=== PATIENT | male | born 1945 | race Two or more races ===

== ENCOUNTER 2018-05-05 18:47 | Inpatient (IN) | payer MEDICARE, OTHER ==
[~2018-05-05] VITALS: Ht 172.7 cm; Wt 120.7 kg
[~2018-05-05 18:47] MED LIST: BENA5TAB15 PO; GLYB1TAB3 PO; LEVA15HF4 IH; OMEP20CA4 PO; TAMS-12 PO
--- NOTE | 2018-05-05 18:50 | NUR ---
PT BIB SELF C/O SOB, COUGH AND CONGESTION WORST AT NIGHT X 4 DAY, PT IS AOX4, NOT IN CP DISTRESS, V/S STABLE, KEPT RESTED AND COMFORTABLE, AWAITING ER MD FOR EVAL.
--- NOTE | 2018-05-05 19:15 | NUR ---
ENDORSED TO JUSTIN SALINAS FOR GRADY.
--- NOTE | 2018-05-05 19:17 | NUR ---
REC'D ENDORSEMENT FROM JUSTIN SMILEY FOR GRADY
[2018-05-05] MEDS ORDERED: ALBUTEROL FS 2.5 MG/3 ML VIAL.NEB ONE ×2 (19:22→19:35)
[2018-05-05] MEDS ORDERED: ALBUTEROL FS 2.5 MG/3 ML VIAL.NEB CONTNEB ONE (19:30)
[2018-05-05] MEDS ORDERED: methylPREDNISolone SOD SUCC 125 MG/2ML VIAL IV ONE (19:30)
--- NOTE | 2018-05-05 19:30 | NUR ---
COLLECTED INFLUENZA SWAB FROM RIGHT NARE AND SENT TO LAB
[2018-05-05] MEDS ORDERED: methylPREDNISolone SOD SUCC 125 MG/2ML VIAL ONE (19:34)
[2018-05-05 19:57] LABS: BASOPHILS % (AUTO) 0.5 % (0.0-2.0); EOSINOPHILS % (AUTO) 3.2 % (0.0-6.0); HEMATOCRIT 44 % (39-51); HEMOGLOBIN 14.5 g/dL (13.5-17.5); LYMPHOCYTES # (AUTO) 1.2 /CMM (0.8-4.8); LYMPHOCYTES % (AUTO) 14.7 % (20.0-44.0); MEAN CORPUSCULAR HGB CONC 33 g/dl (31.0-36.0); MEAN CORPUSCULAR VOLUME 87 fL (80-96); MONOCYTES # (AUTO) 1.2 /CMM (0.1-1.30); NEUTROPHILS # (AUTO) 5.4 /CMM (1.8-8.9); NEUTROPHILS % (AUTO) 66.6 % (43.0-81.0); PLATELET COUNT (AUTO) 157 /CMM (150-450); RED BLOOD CELL COUNT(AUTO) 5.03 MIL/uL (4.5-6.0); WHITE BLOOD COUNT (AUTO) 8.1 K/uL (4.3-11.0)
--- NOTE | 2018-05-05 20:01 | NUR ---
SOB, COUGH AND CONGESTION WORST AT NIGHT X 4 DAY. AOX4, VSS, RESPIRATIONS EVEN AND UNLABORED. 94% O2 ON 4L NC. SKIN WARM TO TOUCH, DRY, INTACT. NO ACUTE DISTRESS NOTED. NO OTHER COMPLAINTS AT THIS TIME. SON AT BS. AWAITING ORDERS.
[2018-05-05 20:11] LABS: ALANINE AMINOTRANSFERASE 32 U/L (12-78); ALBUMIN 3.3 g/dL (3.4-5.0); ALKALINE PHOSPHATASE 44 U/L (46-116); ASPARTATE AMINOTRANSFERASE 23 U/L (15-37); BILIRUBIN,DIRECT 0.1 mg/dL (0.0-0.2); BILIRUBIN,TOTAL 0.4 mg/dL (0.2-1.0); CALCIUM, SERUM 8.1 mg/dL (8.5-10.1); CARBON DIOXIDE 28 mmol/L (21-32); CHLORIDE 102 mmol/L (98-107); CREATININE 0.9 mg/dL (0.6-1.3); GLUCOSE 166 mg/dL (74-106); LIPASE 127 U/L (73-393); POTASSIUM 4.1 mmol/L (3.5-5.1); SODIUM SERUM 138 mmol/L (136-145); TOTAL PROTEIN, SERUM 6.9 g/dL (6.4-8.2); UREA NITROGEN, BLOOD 13 mg/dL (7-18)
[2018-05-05] MEDS ORDERED: ASPIRIN 325 MG TABLET ONE (20:26)
[2018-05-05] MEDS ORDERED: FUROSEMIDE 40 MG/4 ML VIAL ONE (20:27)
[2018-05-05] MEDS ORDERED: FUROSEMIDE 20 MG/2 ML VIAL ONE (20:27)
[2018-05-05] MEDS ORDERED: ASPIRIN 325 MG TABLET PO ONE (20:30)
[2018-05-05] MEDS ORDERED: FUROSEMIDE 40 MG/4 ML VIAL IV ONE (20:30)
--- NOTE | 2018-05-05 20:55 | NUR ---
PT IS ASSIGNED TO #: [id number], DX: CHF, AND ACCEPTING : SERINA BARTON NP
[2018-05-05] MEDS ORDERED: ALBUTEROL FS 2.5 MG/3 ML VIAL.NEB NEB PRN (21:00)
[2018-05-05] MEDS ORDERED: IPRATROPIUM NEB FS 0.5 MG/2.5 ML AMPUL.NEB NEB PRN (21:00)
--- NOTE | 2018-05-05 21:25 | NUR ---
REPORT GIVEN TO JUSTIN TRUJILLO FOR 328-1 TELE
[2018-05-05] MEDS ORDERED: LEVALBUTEROL TARTRATE IH PRN (21:30)
[2018-05-05 22:00] VITALS: BP 145/71
--- NOTE | 2018-05-05 22:05 | NUR ---
JUNIOR ACCOUNT MANAGEROPERATIONS SUPPORT PROFESSIONALS NOTES ADMITTED FORM ER THIS 72 YO MALE,[place] SPEAKING WITH [place],ACCOMPANIED BY SON,WITH CHIEF COMPLAINTS OF SHORTNESS OF BREATH,COUGH AND CONGESTION WORST NIGHT X 4 DAYS.ALERT,ORIENTED X4,AMBULATORY,NO SKIN ISSUES.WILT SLIGHT WHEEZING ON BOTH LOWER LUNG FIELD.O2 SAT 92% ON ROOM AIR.WITH SALINE LOCK RIGHT HAND #20 INTACT AND PATENT.PER REPOST BY BRAD ER NURSE,PATIENT WAS GIVEN LASIX 60MG IV.PER PATIENT,HE WENT TO THE TOILET 5X ALREADY.BLOOD SUGAR IN ER 166,WILL NOTIFY SERINA HUTCHINSON FOR ACCU-CHECK.ALSO GIVEN SOLU-MEDROL 125MG IV IN ER.ORIENTED TO ROOM SET UP.CALL LIGHT IN REACH,NEEDS ANTICIPATED.
--- NOTE | 2018-05-05 22:10 | NUR ---
PT TRANSFERRED TO [facility] TELE
[2018-05-05 22:25] VITALS: BP 145/71
[2018-05-06] VITALS (7 sets, daily range): BP systolic 133–145; BP diastolic 70–84
--- NOTE | 2018-05-06 06:20 | NUR ---
ACCOUNTING BOOKKEEPER NOTES SR WITH PAC'S ON TELE MONITOR,DENIES CHEST PAIN,CLAIMED SLEPT ONLY 1 1/2 HOUR AT NIGHT.O2 IN USED,URINE FOR U/A STILL NEEDED.IN NO ACUTE DISTRESS.WILL HOLD BREAKFAST TILL SEEN BY CARDIO DOCTOR.WILL ENDORSE TO DAY NURSE FOR GRADY.
--- NOTE | 2018-05-06 07:37 | NUR ---
MS/RN Patient received Patient received from drum drier operator. A/OX4, denies any pain or discomfort at this time. No shortness of breath observed. Safety measures in place, call light within reach. Will continue to monitor and ensure safety.
[2018-05-06 07:45] LABS: ALANINE AMINOTRANSFERASE 38 U/L (12-78); ALBUMIN 3.4 g/dL (3.4-5.0); ALKALINE PHOSPHATASE 50 U/L (46-116); ASPARTATE AMINOTRANSFERASE 25 U/L (15-37); BILIRUBIN,TOTAL 0.3 mg/dL (0.2-1.0); CALCIUM, SERUM 8.8 mg/dL (8.5-10.1); CARBON DIOXIDE 30 mmol/L (21-32); CHLORIDE 99 mmol/L (98-107); CREATININE 0.9 mg/dL (0.6-1.3); GLUCOSE 292 mg/dL (74-106); MAGNESIUM 1.8 mg/dL (1.8-2.4); PHOSPHORUS 3.5 mg/dL (2.5-4.9); POTASSIUM 4.3 mmol/L (3.5-5.1); SODIUM SERUM 138 mmol/L (136-145); TOTAL PROTEIN, SERUM 7.8 g/dL (6.4-8.2); UREA NITROGEN, BLOOD 19 mg/dL (7-18)
[2018-05-06 07:53] LABS: CHOLESTEROL 136 mg/dL (<200); HDL CHOLESTEROL 35 mg/dL (40-60); LDL 90 mg/dL (0-99); THYROID STIMULATING HORMONE 1.097 uIU/mL (0.358-3.74); TRIGLYCERIDES 66 mg/dL (30-150)
[2018-05-06] MEDS ORDERED: CARV3.122 PO (08:03)
[2018-05-06] MEDS ORDERED: LOSA25TA27 PO (08:03)
[2018-05-06] MEDS ORDERED: HYDR25TA4 PO (08:03)
[2018-05-06] MEDS ORDERED: SITA1TAB2 PO (08:03)
[2018-05-06] MEDS ORDERED: MULT-24 PO (08:03)
[2018-05-06] MEDS ORDERED: ATOR10TA PO (08:03)
[2018-05-06] MEDS: TAMSULOSIN 0.4 MG CAP.SR.24H PO SCH (08:25)
[2018-05-06] MEDS: FUROSEMIDE 40 MG/4 ML VIAL IV SCH ×2 (08:25→16:25)
[2018-05-06] MEDS: BENAZEPRIL HCL 5 MG TABLET PO SCH (08:25)
[2018-05-06] MEDS: AZITHROMYCIN 250 MG TABLET PO SCH (08:25)
[2018-05-06] MEDS: ENOXAPARIN SODIUM 40 MG/0.4 ML DISP.SYRIN SQ SCH (08:27)
--- NOTE | 2018-05-06 08:30 | NUR ---
MS/RN S/B Dr Monge Seen by Dr Saleem raygoza and diuretics ordered.
[2018-05-06] MEDS ORDERED: methylPREDNISolone SOD SUCC 40 MG/ML VIAL IV SCH (09:00)
[2018-05-06] MEDS ORDERED: OMEPRAZOLE 20 MG CAPSULE.DR PO SCH (09:00)
[2018-05-06] MEDS: ATORVASTATIN 10 MG TABLET PO SCH (09:24)
[2018-05-06] MEDS: PANTOPRAZOLE 40 MG TABLET.DR PO SCH (09:24)
--- NOTE | 2018-05-06 09:31 | NUR ---
MS/RN S/B Dr Maynard Seen by Dr Maynard - chest pain likely due to persistent cough. CHF confirmed by CXR, lasix IVP ordered.
[2018-05-06] MEDS: methylPREDNISolone SOD SUCC 40 MG/ML VIAL IV SCH ×3 (12:32→21:06)
[2018-05-06 13:39] LABS: APPEARANCE,URINE CLEAR (CLEAR); BILIRUBIN,URINE NEGATIVE (NEGATIVE); BLOOD, URINE NEGATIVE Ery/uL (NEGATIVE); COLOR,URINE YELLOW (YELLOW); KETONES,URINE NEGATIVE (NEGATIVE); LEUKOCYTE ESTERASE ,URINE NEGATIVE (NEGATIVE); NITRITE, URINE NEGATIVE (NEGATIVE); PROTEIN,URINE NEGATIVE (NEGATIVE); UGLUCOSE 2+ mg/dL (NEGATIVE)
[2018-05-06 13:52] LABS: BACTERIA,URINE Rare /HPF (None Seen); SQUAMOUS EPITHELIAL CELL,UR Rare /HPF (None Seen)
[2018-05-06 13:53] LABS: RBC,URINE 0-2 /HPF (0-2); WBC,URINE 0-2 /HPF (0-3)
--- NOTE | 2018-05-06 14:56 | NUR ---
MS/RN SOB Patient complaining of feeling short of breath. Saturation on 2l 97%, all other vital signs within normal range. Patient encouraged to try to relax, will continue to monitor.
--- NOTE | 2018-05-06 18:01 | NUR ---
MS/RN End note Patient remains without any shortness of breath today, continues to void large volumes of clear colored urine. For possible discharge to home tomorrow.
--- NOTE | 2018-05-06 19:45 | NUR ---
MS RN NOTES RECEIVED RESTING COMFORTABLY ON BED,CLAIMED HE FEEL GREAT,SLIGHT BACK PAIN 2/10 ON ON PAIN SCALE ON INSPIRATION.O2 AT 2L/NC IN USED,O2 SAT 99%.SALINE LOCK RIGHT HAND INTACT AND PATENT. AT BEDSIDE.CALL LIGHT IN REACH,NEEDS ANTICIPATED.
[2018-05-06] MEDS: ALBUTEROL FS 2.5 MG/3 ML VIAL.NEB NEB SCH (20:10)
--- NOTE | 2018-05-06 20:10 | NUR ---
MS RN NOTES RT AT BEDSIDE ADMINISTERING BREATHING TREATMENT SCHEDULED.
--- NOTE | 2018-05-06 21:00 | NUR ---
MS RN NOTES DUE SOLU-MEDROL 40MG IV GIVEN SCHEDULED
[2018-05-07] MEDS ORDERED: diphenhydrAMINE HCL 25 MG CAPSULE ONE (00:56)
--- NOTE | 2018-05-07 00:57 | NUR ---
MS RN NOTES AWAKE,ASKING FOR SLEEPING PILL,SERINA ORDERED BENADRYL 25MG PO,GIVEN THIS TIME.
[2018-05-07] MEDS ORDERED: diphenhydrAMINE HCL 25 MG CAPSULE PO ONE (01:00)
[2018-05-07] MEDS: ALBUTEROL FS 2.5 MG/3 ML VIAL.NEB NEB SCH ×3 (01:11→12:53)
[2018-05-07 04:00] VITALS: BP 134/77
--- NOTE | 2018-05-07 06:20 | NUR ---
MS RN NOTES NO SIGNIFICANT CHANGE IN STATUS.BREATHING TREATMENT TOLERATED WELL.NO SOB.SLEPT WELL WITH BENADRYL.IN NO ACUTE DISTRESS.WILL ENDORSE TO DAY NURSE FOR GRADY.
--- NOTE | 2018-05-07 07:20 | NUR ---
RN OPENING NOTES RECEIVED PATIENT IN THE ROOM, AWAKE, A/OX4, LIBYAN SPEAKING. ABLE TO MAKE NEEDS KNOWN. ON ROOM AIR, TOLERATING WELL, "I DONT NEED OXYGEN RIGHT NOW, IM BREATHING GOOD" PER PATIENT. NO DISTRESS, NO SOB. DENIED PAIN OR DISCOMFORT AT THE MOMENT. KEPT PATIENT SAFE AND COMFORTABLE. DISCUSSED POC. BED IN LOW/LOCKED POSITION, SIDERAILS UPX2, CALL LIGHT IN REACH. WILL CONTINUE TO MONITOR ACCORDINGLY.
[2018-05-07 08:00] VITALS: BP 126/73
[2018-05-07 08:20] VITALS: BP 126/73
[2018-05-07] MEDS: BENAZEPRIL HCL 5 MG TABLET PO SCH (08:20)
[2018-05-07] MEDS: TAMSULOSIN 0.4 MG CAP.SR.24H PO SCH (08:20)
[2018-05-07] MEDS: ATORVASTATIN 10 MG TABLET PO SCH (08:21)
[2018-05-07] MEDS: AZITHROMYCIN 250 MG TABLET PO SCH (08:21)
[2018-05-07] MEDS: PANTOPRAZOLE 40 MG TABLET.DR PO SCH (08:21)
[2018-05-07] MEDS: FUROSEMIDE 40 MG/4 ML VIAL IV SCH (08:22)
[2018-05-07] MEDS: methylPREDNISolone SOD SUCC 40 MG/ML VIAL IV SCH (08:25)
[2018-05-07] MEDS: ENOXAPARIN SODIUM 40 MG/0.4 ML DISP.SYRIN SQ SCH (08:29)
[2018-05-07 09:38] LABS: ABG BASE EXCESS 1.4 mmol/L; ABG OXYGEN SATURATION 91.4 % (92.0-98.5); ABG PCO2 42.2 mmHg (35.0-45.0); ABG PH 7.412 (7.350-7.450); ABG PO2 61.8 mmHg (75.0-100.0); AaDO2 37.4 mmHg; COHb 0.7 % (0.5-1.5); MetHb 0.7 % (0.0-1.5); O2Hb 90.1 % (94.0-97.0); SITE, ABG Right Radial; VENT MODE, BG RA
[2018-05-07] MEDS ORDERED: AZIT250T PO (10:15)
[2018-05-07] MEDS ORDERED: PRED50TA PO (10:15)
--- NOTE | 2018-05-07 13:10 | NUR ---
DISCHARGED PATIENT IN STABLE CONDITION ACCOMPANIED BY PRIMARY NURSE TO THE LOBBY. DISCHARGE INSTRUCTIONS GIVEN, VERBALIZED UNDERSTANDING, DC PAPERWORK AND PRESCRIPTIONS GIVEN TO PATIENT. ALL BELONGINGS RETURNED, FORMS SIGNED. IV ACCESS REMOVED, APPLIED PRESSURE, NO BLEEDING, NO COMPLICATIONS. REMOVED NAMEBAND. REFUSED PHOTOS, NO WOUNDS OR BRUISES PER PATIENT.
== END 2018-05-07 13:14 | disposition home or self-care (01) | DRG 292 ==
LOC: ER 18:52 → TELE 21:22 → MED 05-06 10:45
PROVIDERS: ADMIT Registered Nurse; ATTEND Internal Medicine
DX: I11.0 Hypertensive heart disease with heart failure (principal); J44.1 Chronic obstructive pulmonary disease with (acute) exacerbation; I50.32 Chronic diastolic (congestive) heart failure; E78.5 Hyperlipidemia, unspecified; N40.0 Benign prostatic hyperplasia without lower urinary tract symptoms; K21.9 Gastro-esophageal reflux disease without esophagitis; E11.65 Type 2 diabetes mellitus with hyperglycemia; Z91.013 Allergy to seafood; J45.909 Unspecified asthma, uncomplicated; E66.01 Morbid (severe) obesity due to excess calories; Z72.0 Tobacco use; G47.33 Obstructive sleep apnea (adult) (pediatric)
CPT/HCPCS: 36415; 36600; 71045-TC; 80048-TC; 80053-TC; 80061-TC; 80076-TC; 81000-TC; 82803-TC; 83690-TC; 83735-TC; 83880; 84100-TC; 84439-TC; 84443-TC; 84484-TC; 85025-TC; 85730-TC; 87081-TC; 87400; 93307-TC; A4606; G0378; J1650; J1940; J2920; J2930; Q0163; Z7610

== ENCOUNTER 2023-12-30 11:56 | Outpatient (CLI) | payer MEDICARE, OTHER ==
[~2023-12-30 11:56] MED LIST changes: +ATOR10TA PO; +AZIT250T PO; -BENA5TAB15 PO; +CARV3.122 PO; -GLYB1TAB3 PO; +HYDR25TA4 PO; +LOSA25TA27 PO; +MULT-24 PO; +PRED50TA PO; +SITA1TAB2 PO
== END 2023-12-30 23:59 | disposition home or self-care (01) ==
LOC: RT 11:56
PROVIDERS: ATTEND Internal Medicine Pulmonary Disease
DX: R06.02 Shortness of breath (principal)
CPT/HCPCS: 36600; 82803-TC; 94799-TC